=== PATIENT | male | born 1965 | race Caucasian/White ===

== ENCOUNTER 2024-08-10 12:16 | Emergency (ER) | payer MEDICAID, OTHER ==
[~2024-08-10] VITALS: Ht 188 cm; Wt 82.4 kg
[2024-08-10 14:12] VITALS: BP 109/77; PULSE 101; RESP 17; TEMP 98.2; O2SAT 95
[2024-08-10] MEDS: TETANUS-DIPTH-ACEL PERTUSSIS 0.5ML SYR Tdap IM ONE (14:28)
[2024-08-10] MEDS ORDERED: CEPH500C PO (15:01)
== END 2024-08-10 15:02 | disposition home or self-care (01) ==
LOC: ER 12:16
DX: S61.211A Laceration without foreign body of left index finger without damage to nail, initial encounter (principal); Z79.899 Other long term (current) drug therapy; W45.8XXA Other foreign body or object entering through skin, initial encounter; Y93.89 Activity, other specified; Y92.89 Other specified places as the place of occurrence of the external cause; Y99.8 Other external cause status
CPT/HCPCS: 12002; 73140; 90471; 90715

== ENCOUNTER 2024-08-23 14:10 | Emergency (ER) | payer MEDICAID ==
[~2024-08-23] VITALS: Ht 188 cm; Wt 83.7 kg
[~2024-08-23 14:10] MED LIST: CEPH500C PO
[2024-08-23 14:51] VITALS: BP 120/88; PULSE 100; RESP 18; TEMP 98.8; O2SAT 99
== END 2024-08-23 15:12 | disposition home or self-care (01) ==
LOC: ER 14:10
DX: S61.211D Laceration without foreign body of left index finger without damage to nail, subsequent encounter (principal); Z48.02 Encounter for removal of sutures; Z79.899 Other long term (current) drug therapy; X58.XXXD Exposure to other specified factors, subsequent encounter